=== PATIENT | female | born 1960 | race Caucasian/White ===

== ENCOUNTER 2017-02-07 08:37 | Day surgery (SDC) | payer BC, OTHER ==
[2017-02-07] MEDS ORDERED: Sodium Chloride 0.9% 10 ML Syringe FLUSH PRN (09:00)
[2017-02-07] MEDS ORDERED: Propofol 200 MG/20 ML SDV IV ONE (10:40)
--- NOTE | 2017-02-08 10:55 | OR ---
DATE OF OPERATION: 02/07/2017 SURGEON: Max Avelar MD PREOPERATIVE DIAGNOSIS: Cataract, right eye. POSTOPERATIVE DIAGNOSES: 1. Cataract, right eye. 2. Loose zonules, right eye. OPERATION PERFORMED: Phacoemulsification of cataract right eye with placement of an Huff, model ZCB00, 23.0 diopter, foldable, posterior chamber intraocular lens. WEATHER ANCHOR: None. DESCRIPTION OF PROCEDURE: Peribulbar anesthetic was performed using a mixture of 2% lidocaine with Wydase. The patient was prepped and draped in the usual fashion. A 3 mm fornix based conjunctival flap was performed at the 10 o'clock position. Hemostasis was obtained using diathermy, and a 2.8 mm grooved near clear corneal incision was then made. A stab incision was made into the anterior chamber at the 12 o'clock position and a second stab wound incision was made underlying the grooved near clear corneal incision. Viscoat was instilled into the anterior chamber, and a continuous tear capsulotomy was performed. Hydrodissection was accomplished with balanced salt solution, and the nucleus was removed in a divide and conquer fashion. The remaining cortical material was removed with the irrigation and aspiration unit. Viscoat was instilled into the anterior chamber, and an Huff, model ZCB00, 23.0 diopter, foldable, posterior chamber intraocular lens was placed into the capsular bag, the haptics being positioned at the 1 and 7 o'clock positions. The residual Viscoat was removed from the anterior chamber and the anterior chamber reformed with balanced salt solution. The wound was checked and noted to be watertight. The conjunctiva was secured in its original position with diathermy. Alphagan and Maxitrol Ointment were then placed into the patient's eye. The patient tolerated the procedure well and it was without complication. Elapsed phacoemulsification time was 26.2 seconds. Postoperative instructions as related to activities as well as medications were reviewed with the patient. The patient was instructed to return to see me on the day following surgery for the first postoperative check. The patient was also instructed to contact me prior to that time if the patient were to have any problems. ADDENDUM: It should be noted that, during the course of the patient's surgery, there was slight looseness of the zonules, which particularly was apparent during her anterior capsulotomy. This did not cause any problems in regard to the surgery itself. /[id number] DEG/MODL CC: MARTHA ROCHE PA-C
== END 2017-02-07 12:13 | disposition home or self-care (01) ==
LOC: FB.SDS 08:37
PROVIDERS: ATTEND Ophthalmology
DX: H26.8 Other specified cataract (principal); I10 Essential (primary) hypertension; E78.1 Pure hyperglyceridemia; Z79.899 Other long term (current) drug therapy
CPT/HCPCS: 66984; C1780; J2704; J7050

== ENCOUNTER 2017-03-21 09:01 | Day surgery (SDC) | payer BC ==
[~2017-03-21 09:01] MED LIST: Sodium Chloride 0.9% 10 ML Syringe FLUSH PRN
[2017-03-21] MEDS ORDERED: Propofol 200 MG/20 ML SDV IV ONE (11:30)
--- NOTE | 2017-03-22 09:06 | OR ---
DATE OF OPERATION: 03/21/2017 SURGEON: Max Avelar MD PREOPERATIVE DIAGNOSIS: Cataract, left eye. POSTOPERATIVE DIAGNOSIS: Cataract, left eye. PROCEDURES: Phacoemulsification of cataract, left eye, with placement of an Huff model ZCB00, 22.5 diopter foldable posterior chamber intraocular lens. POST CLOSER: None. DESCRIPTION OF PROCEDURE: Peribulbar anesthetic was performed using a mixture of 2% lidocaine with Wydase. The patient was prepped and draped in the usual fashion. A 3 mm fornix based conjunctival flap was performed at the 10 o'clock position. Hemostasis was obtained using diathermy, and a 2.8 mm grooved near clear corneal incision was then made. A stab incision was made into the anterior chamber at the 12 o'clock position and a second stab wound incision was made underlying the grooved near clear corneal incision. Viscoat was instilled into the anterior chamber, and a continuous tear capsulotomy was performed. Hydrodissection was accomplished with balanced salt solution, and the nucleus was removed in a divide and conquer fashion. The remaining cortical material was removed with the irrigation and aspiration unit. Viscoat was instilled into the anterior chamber, and an Huff model ZCB00, 22.5 diopter, foldable, posterior chamber intraocular lens was placed into the capsular bag, the haptics being positioned at the 1 and 7 o'clock positions. The residual Viscoat was removed from the anterior chamber and the anterior chamber reformed with balanced salt solution. The wound was checked and noted to be watertight. The conjunctiva was secured in its original position with diathermy. Alphagan and Maxitrol Ointment were then placed into the patient's eye. The patient tolerated the procedure well and it was without complication. Elapsed phacoemulsification time was 11.9 seconds. /[id number] DEG/MODL CC: IVONNE Thornton, MARTHA MTDD
--- NOTE | 2017-03-23 13:26 | DISCH ---
DATE OF FOLLOW-UP VISIT: 03/22/2017 Amina Diaz was seen on 03/22/2017 in regard to first postoperative check of her left eye. On 03/21/2017, she underwent uneventful phacoemulsification with placement of a foldable posterior chamber intraocular lens in the left. On the first postoperative day, visual acuity in the left eye, without correction, was 20/30. The conjunctiva was minimally injected. The cornea was clear. The anterior chamber was deep with a minimal amount of inflammation. The iris was normal and her posterior chamber intraocular lens was in good position. She had a good red reflex and intraocular pressure was 12. My impression is that Amina is doing well following her surgery. DISCHARGE INSTRUCTIONS: She was instructed to continue prednisolone acetate 1%, ketorolac, and Vigamox in the operative eye four times a day and given a tapering dose schedule thereof. She also was instructed to continue using timolol 0.25% in each eye twice a day as per Dr. Lawson's prior instructions. She will be returning to see Dr. Lawson in about one week for recheck. She also was instructed to contact Dr. Lawson or my office prior to that time if she would have any problems. /[id number] DEG/MODL CC: Sal Lawson OD
== END 2017-03-21 13:15 | disposition home or self-care (01) ==
LOC: FB.SDS 09:01
PROVIDERS: ATTEND Ophthalmology
DX: H26.9 Unspecified cataract (principal); I10 Essential (primary) hypertension; E78.5 Hyperlipidemia, unspecified; Z79.899 Other long term (current) drug therapy
CPT/HCPCS: 66984; C1780; J2704; J7050

== ENCOUNTER 2022-10-01 07:50 | Day surgery (SDC) | payer BC, OTHER ==
[~2022-10-01 07:50] MED LIST changes: +Lactated Ringers 1,000 ML IV SCH
[2022-10-01] MEDS ORDERED: Lidocaine 2% 5 ML SDV INJECT ONE (07:51)
[2022-10-01] MEDS ORDERED: Propofol 200 MG/20 ML SDV IV ONE (07:51)
[2022-10-01] MEDS ORDERED: Glycopyrrolate 0.2 MG/ML 5 ML MDV IV ONE (07:51)
[2022-10-01] MEDS ORDERED: Simethicone Drops 40 MG/0.6 ML 30 ML Bottle ONE (09:00)
== END 2022-10-01 10:30 | disposition home or self-care (01) ==
LOC: FB.SDS 07:50
PROVIDERS: ATTEND Surgery
DX: Z12.11 Encounter for screening for malignant neoplasm of colon (principal); I10 Essential (primary) hypertension; E78.00 Pure hypercholesterolemia, unspecified; R73.9 Hyperglycemia, unspecified; E66.9 Obesity, unspecified; Z80.0 Family history of malignant neoplasm of digestive organs; Z79.899 Other long term (current) drug therapy; Z68.31 Body mass index [BMI] 31.0-31.9, adult
CPT/HCPCS: 00812; 45378; A9270; J2704; J3490; J7120